=== PATIENT | male | born 1985 | race African-American/Black ===

== ENCOUNTER 2016-03-09 15:28 | Emergency (ER) | payer OTHER ==
[~2016-03-09] VITALS: Ht 170.2 cm; Wt 75.0 kg
[2016-03-09 15:29] VITALS: BP 146/72; PULSE 59; RESP 15; TEMP 98.2; O2SAT 99
--- NOTE | 2016-03-09 16:43 | PD ---
HPI Chief Complaint: Head Injury Time Seen by Provider: 16:39 Travel History International Travel<30 days: No Contact w/Intl Traveler<30days: No Traveled to known affect area: No History of Present Illness HPI Patient comes in for evaluation of head and neck injury that occurred last night while at a wrestling event. Patient states he was demonstrating a wrestling move when he accidentally got dropped on his head and neck. Patient thinks he may have loss consciousness, but is uncertain and for how long. 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 Denies any numbness or tingling, loss change in bowel or bladder, vomiting, chest pain, shortness of breath. Patient states he has had some associated "mild headache", dizziness, and nausea. Patient denies doing anything for this. Patient reports that he did eat while in the waiting room. [facility] Past Medical History Medical History: Denies Significant Hx Social History Alcohol Use: No Tobacco Use: No Substance Use: No Allergies-Medications (Allergen,Severity, Reaction): Coded Allergies: No Known Allergies (Unverified , 03/09/16) Reported Meds & Prescriptions Reported Meds & Active Scripts Active No Active Prescriptions or Reported Medications Review of Systems Except as stated in HPI: all other systems reviewed are Neg Physical Exam Narrative GENERAL: Well-developed, well nourished, in no acute distress, and non-ill appearing. SKIN: Warm and dry. HEAD: Atraumatic. Normocephalic. EYES: Pupils equal and round. EOMI. No scleral icterus. No injection or drainage. ENT: No nasal bleeding or discharge. Mucous membranes pink and moist. NECK: Trachea midline. No tenderness or crepitus or midline cervical spine. Patient reports tenderness to palpation left paravertebral spinal muscles near C7. Supple. No nuclear rigidity. CARDIOVASCULAR: Regular rate and rhythm. No murmur appreciated. RESPIRATORY: No accessory muscle use. No respiratory distress. Clear to auscultation. Breath sounds equal bilaterally. MUSCULOSKELETAL: No obvious deformities. No clubbing. No cyanosis. No edema. Full range of motion. Shoulder:FROM equal BL with passive flexion, extension, Abduction, Adduction, internal/external rotation, and pronation/supination. Sensation equal BL deltoid muscles. Pulses equal BL distal to injury. Capillary refill less than 2 seconds distal to injury and equal BL. FROM distal to injury and equal BL. Strength distal to injury equal BL. NV intact distal to injury equal BL. Flexion and extension of thumb equal BL. Equal strength and movement with abduction/adductions of BL fingers. Service Agent strength equal BL. Patient able to ambulate normally and bear full weight. NEUROLOGICAL: Awake and alert. No obvious cranial nerve deficits. Motor grossly within normal limits. Normal speech. PSYCHIATRIC: Appropriate mood and affect; insight and judgment normal. Data Data Last Documented VS Vital Signs Date Time Temp Pulse Resp B/P Pulse Ox O2 Delivery O2 Flow Rate FiO2 03/09/16 15:29 98.2 59 15 146/[address] Brain W/O Iv Contrast(Rout) (03/09/16 ) Ct Cerv Spine W/O Contrast (03/09/16 ) Apply Cervical Collar (03/09/16 16:34) Ondansetron Odt (Zofran Odt) (03/09/16 16:45) MDM Medical Decision Making Medical Screen Exam Complete: Yes Emergency Medical Condition: Yes Differential Diagnosis Close head injury, intracranial hemorrhage, fracture, strain, other Narrative Course Patient presents with minor CHI and has a symptom complex consistent with concussion. There was no evidence of cranial or intracranial injury noted on CT of the head. No evidence of fracture or injury to cervical spine on C-spine CT. The patient has been behaving normally and no notable altered mental status. [place] score of 15. The neurologic exam is normal. There is no clinical evidence to support intracranial injury or bleed. The patient was instructed to not participate in any activities or sports were a repeat head injury may occur until their primary physician or neurologist clears the patient for such activities. The patient agreed with plan. Patient in no obvious distress upon re-evaluation. All pertinent Radiology result(s) discussed with patient and his mother. Any questions/concerns in reference to patient diagnosis/condition discussed and clarified prior to patient's discharge. Reinforced sheer importance of close follow up with patient 's primary physician or primary care clinic. Instructed patient to return to ED immediately, if symptoms return/worsen. Pt showed understanding of above instructions. Further instructions and recommendations were detailed in discharge paperwork. Pt ambulated without difficulty out of ED at discharge. Diagnosis Primary Impression: Closed head injury with concussion Qualified Code: S06.0X9A - Closed head injury with concussion, with loss of consciousness of unspecified duration, initial encounter Additional Impression: Cervical strain Qualified Code: S16.1XXA - Cervical strain, initial encounter Patient Instructions: Cervical Neck Strain Exercises (GEN), Cervical Strain (ED ), General Instructions, Head Injury (ED), Post Concussion Syndrome (GEN) Additional Instructions: Follow-up with your primary care physician as soon as possible for reevaluation. Do not participate in any sports or other activities that may cause another head injury until reevaluated and cleared by your primary care physician. Return to the emergency department immediately if any uncontrolled vomiting, change in mental status, inability to walk normally, worsening headache, or for other concerns. Scripts No Active Prescriptions or Reported Meds Disposition: 01 DISCHARGE HOME Condition: Stable Damien Redmond Mar 09, 2016 16:43
[2016-03-09] MEDS ORDERED: ONDANSETRON ODT 4 MG TAB PO ONE (16:45)
--- NOTE | 2016-03-09 17:30 | RADRPT ---
EXAM DATE/TIME: 03/09/2016 17:10 [facility] COMPARISON: No previous studies available for comparison. INDICATIONS : Cephalgia after sports injury. RADIATION DOSE: 56.35 CTDIvol (mGy) MEDICAL HISTORY : None SURGICAL HISTORY : None. ENCOUNTER: Initial ACUITY: 1 day PAIN SCALE: 9/10 LOCATION: cranial TECHNIQUE: Multiple contiguous axial images were obtained of the head. Using automated exposure control and adj ustment of the mA and/or kV according to patient size, radiation dose was kept as low as reasonably a chievable to obtain optimal diagnostic quality images. FINDINGS: CEREBRUM: The ventricles are normal for age. No evidence of midline shift, mass lesion, hemorrhage or acute in farction. No extra-axial fluid collections are seen. POSTERIOR FOSSA: The cerebellum and brainstem are intact. The 4th ventricle is midline. The cerebellopontine angle i s unremarkable. EXTRACRANIAL: The visualized portion of the orbits is intact. There is minimal right sphenoid focal mucosal disease . SKULL: The calvaria is intact. No evidence of skull fracture. CONCLUSION: Negative CT examination of the head. Leo Chand MD on March 09, 2016 at 17:26 Board Certified Radiologist. This report was verified electronically.
--- NOTE | 2016-03-09 18:15 | RADRPT ---
EXAM DATE/TIME: 03/09/2016 17:10 [facility] COMPARISON: No previous studies available for comparison. INDICATIONS : Cephalgia after sports injury. RADIATION DOSE: 21.96 CTDIvol (mGy) MEDICAL HISTORY : None SURGICAL HISTORY : None. ENCOUNTER: Initial ACUITY: 1 day PAIN SCALE: 5/10 LOCATION: Bilateral neck TECHNIQUE: Volumetric scanning of the cervical spine was performed. Multiplanar reconstructions in the sagittal, coronal and oblique axial planes were performed. Using automated exposure control and adjustment o f the mA and/or kV according to patient size, radiation dose was kept as low as reasonably achievable to obtain optimal diagnostic quality images. FINDINGS: VERTEBRAE: Normal vertebral body height. ALIGNMENT: No evidence of subluxation. C2-C3: The bony spinal canal is normal in size. No evidence of disc bulge or herniation. The neural forami na are bilaterally patent. C3-C4: The bony spinal canal is normal in size. No evidence of disc bulge or herniation. The neural forami na are bilaterally patent. C4-C5: The bony spinal canal is normal in size. No evidence of disc bulge or herniation. The neural forami na are bilaterally patent. C5-C6: The bony spinal canal is normal in size. No evidence of disc bulge or herniation. The neural forami na are bilaterally patent. C6-C7: The bony spinal canal is normal in size. No evidence of disc bulge or herniation. The neural forami na are bilaterally patent. C7-T1: The bony spinal canal is normal in size. No evidence of disc bulge or herniation. The neural forami na are bilaterally patent. CONCLUSION: Negative exam. No acute osseous injury. Teddy Tejada MD on March 09, 2016 at 18:12 Board Certified Radiologist. This report was verified electronically.
[2016-03-09 18:51] VITALS: BP 140/85; PULSE 79; RESP 16; O2SAT 99
== END 2016-03-09 18:52 | disposition home or self-care (01) ==
LOC: NEPC 15:28
DX: S06.0X0A Concussion without loss of consciousness, initial encounter (principal); W18.39XA Other fall on same level, initial encounter; Y93.72 Activity, wrestling; Y92.838 Other recreation area as the place of occurrence of the external cause
CPT/HCPCS: 70450; 72125